=== PATIENT | female | born 1955 | race Caucasian/White ===

== ENCOUNTER → 2016-11-09 | Outpatient (CLI) | payer OTHER | LOC: MAMO 11:00 | DX: Z12.31 Encounter for screening mammogram for malignant neoplasm of breast (principal) | CPT/HCPCS: G0202 ==

== ENCOUNTER 2017-01-15 05:16 | Emergency (ER) | payer OTHER ==
[2017-01-15 06:34] LABS: HEMOGLOBIN 13.5 gm/dl (12.3-15.3); RED BLOOD COUNT 4.62 M/UL (4.00-5.10); WHITE BLOOD COUNT 13.2 K/UL (4.5-11.0)
== END 2017-01-15 07:50 | disposition home or self-care (01) ==
LOC: ER1 05:16
PROVIDERS: Emergency Medicine
DX: A08.4 Viral intestinal infection, unspecified (principal)
CPT/HCPCS: 36415; 80053; 82009; 82800; 83690; 85025; 96374; 99284; J2405

== ENCOUNTER → 2020-11-05 | Outpatient (CLI) | payer OTHER ==
[~2020-11-05] MED LIST: CEFUROXIME500 MG PO; CIPRO500 MG PO; FLAGYL500 MG PO; K-DUR TAB 20 M20 MEQ PO; KEFLEX CAP 500500 MG PO; ZOFRAN ODT 4 MG4 MG PO; ZOFRAN4 MG PO
[2020-11-05 16:59] LABS: HEMOGLOBIN 13.6 gm/dl (12.3-15.3); RED BLOOD COUNT 4.94 M/UL (4.00-5.10); WHITE BLOOD COUNT 11.9 K/UL (4.5-11.0)
[2020-11-05 17:22] LABS: BUN/CREATININE RATIO 20 (0-10)
[2020-11-07 08:13] LABS: VITAMIN D, 25-HYDROXY 88.4 ng/mL (30.0-100.0)
[2020-11-07 12:13] LABS: CREATININE, URINE 83.2 mg/dL (Not Estab.)
== END ==
LOC: LAB 16:30
PROVIDERS: Nurse Practitioner Family
DX: E11.9 Type 2 diabetes mellitus without complications (principal); E78.5 Hyperlipidemia, unspecified; E03.9 Hypothyroidism, unspecified; E55.9 Vitamin D deficiency, unspecified; D50.9 Iron deficiency anemia, unspecified
CPT/HCPCS: 80053; 80061; 82043; 82570; 82728; 83540; 83550; 84439; 84443; 84466; 85025

== ENCOUNTER → 2020-12-20 | Outpatient (CLI) | payer OTHER | LOC: RAD 15:55 | DX: G98.8 Other disorders of nervous system (principal) | CPT/HCPCS: 71045; 74019 ==

== ENCOUNTER → 2020-12-30 | Outpatient (CLI) | payer OTHER | LOC: CT 14:07 | DX: H53.2 Diplopia (principal); R29.818 Other symptoms and signs involving the nervous system; G93.3 Postviral and related fatigue syndromes; C80.1 Malignant (primary) neoplasm, unspecified; K59.00 Constipation, unspecified | CPT/HCPCS: 36415; 71260; 82565; Q9967 ==

== ENCOUNTER → 2021-02-05 | Outpatient (CLI) | payer OTHER | LOC: RAD 16:25 | DX: M54.2 Cervicalgia (principal) | CPT/HCPCS: 72050 ==

== ENCOUNTER → 2021-09-04 | Day surgery (SDC) | payer OTHER ==
[~2021-09-04] MED LIST changes: +BUPROPION HCL200 MG PO; +CARAFATE 1 GM TA1 GM GT; +CELEBREX200 MG PO; +CONSTULOSE10 GM/15 M PO; +IBUPROFEN800 MG PO; +INVEGA6 MG PO; +JARDIANCE25 MG PO; +LEVOTHYROXINE75 MC1 PO; +LYRICA225 MG PO; +METFORMIN ER1000 MG PO; +PROTONIX40 MG PO; +ROPINIROLE HCL2 MG PO; +SEROQUEL XR300 MG PO; +TRIAMCINOLONE A80 G1 TP; +VITAMIN D31250 MCG PO
== END | disposition home or self-care (01) ==
LOC: OR 05:51
DX: K59.09 Other constipation (principal); K29.50 Unspecified chronic gastritis without bleeding; K21.00 Gastro-esophageal reflux disease with esophagitis, without bleeding; E11.9 Type 2 diabetes mellitus without complications; E78.5 Hyperlipidemia, unspecified; E66.9 Obesity, unspecified; Z79.84 Long term (current) use of oral hypoglycemic drugs; Z79.899 Other long term (current) drug therapy; Z20.822 Contact with and (suspected) exposure to COVID-19
CPT/HCPCS: 82962; J2704; J7040

== ENCOUNTER → 2021-10-15 | Day surgery (SDC) | payer OTHER ==
[~2021-10-15] MED LIST changes: +CLARITIN10 M2 PO; +ESZOPICLONE2 MG PO; +EUTHYROX75 MCG PO; +GABAPENTIN400 MG PO; +LACTULOSE20 GM/30 M PO; +LATUDA80 MG PO; +REMERON45 M1 PO; +SEROQUEL300 MG PO; +STEGLATRO5 MG PO; +TRAZODONE HCL100 MG PO
== END | disposition home or self-care (01) ==
LOC: OR 07:30
DX: Z12.11 Encounter for screening for malignant neoplasm of colon (principal); K29.50 Unspecified chronic gastritis without bleeding; K66.0 Peritoneal adhesions (postprocedural) (postinfection); K21.00 Gastro-esophageal reflux disease with esophagitis, without bleeding; K59.09 Other constipation; E66.9 Obesity, unspecified; E11.9 Type 2 diabetes mellitus without complications; F31.9 Bipolar disorder, unspecified; M19.90 Unspecified osteoarthritis, unspecified site; Z68.32 Body mass index [BMI] 32.0-32.9, adult; Z79.84 Long term (current) use of oral hypoglycemic drugs; Z79.899 Other long term (current) drug therapy; Z20.822 Contact with and (suspected) exposure to COVID-19
CPT/HCPCS: 82962; J2001; J2704; J7040

== ENCOUNTER → 2021-10-20 | Outpatient (CLI) | payer OTHER | LOC: RAD 16:02 | DX: M54.50 Low back pain, unspecified (principal); M51.36 Other intervertebral disc degeneration, lumbar region; M51.37 Other intervertebral disc degeneration, lumbosacral region; M47.816 Spondylosis without myelopathy or radiculopathy, lumbar region; M47.817 Spondylosis without myelopathy or radiculopathy, lumbosacral region; M43.17 Spondylolisthesis, lumbosacral region | CPT/HCPCS: 72100 ==

== ENCOUNTER → 2022-04-06 | Outpatient (CLI) | payer OTHER ==
[2022-04-06 10:34] LABS: HEMOGLOBIN 12.5 gm/dl (12.3-15.3); RED BLOOD COUNT 4.32 M/UL (4.00-5.10); WHITE BLOOD COUNT 7.9 K/UL (4.5-11.0)
[2022-04-06 10:56] LABS: BUN/CREATININE RATIO 16 (0-10)
== END ==
LOC: LAB 09:30
PROVIDERS: Nurse Practitioner Family
DX: E11.9 Type 2 diabetes mellitus without complications (principal); E78.5 Hyperlipidemia, unspecified; E03.9 Hypothyroidism, unspecified; E55.9 Vitamin D deficiency, unspecified
CPT/HCPCS: 36415; 80053; 80061; 82043; 82570; 84439; 84443; 85025